=== PATIENT | male | born 1965 | race Caucasian/White ===

== ENCOUNTER 2025-03-25 07:38 | Outpatient (CLI) | payer BC, SELFPAY ==
--- NOTE | 2025-03-25 07:54 | MR_ITS ---
WS: [id number] MRI LUMBAR SPINE NONCONTRAST HISTORY: CHRONIC BILATERAL LOW BACK PAIN W/BILAT SCIATICA COMPARISON: None available. TECHNIQUE: Sagittal and axial multisequence imaging is submitted. L5 anterolisthesis by 4 mm. Disc bases are slightly narrowed and desiccated. Benign hemangioma at L3. Mild anterior wedging of T12. No acute fracture. Conus terminates normally at L1-2 disc level. L1-L2: Mild annular disc bulging. Broad-based disc protrusion LEFT foramen resulting in mild to moderate LEFT foraminal stenosis. Bilateral facet joint arthritis. Mild RIGHT foraminal stenosis also predominantly due to facet disease. L2-L3: Mild annular disc bulging with facet and ligamentum flavum hypertrophy. Very mild central, subarticular recess and foraminal stenosis. L3-L4: Diffuse annular disc bulging and osteophytic ridging with moderate facet arthritis. Central disc osteophytes contact the ventral thecal sac. Disc is extending superiorly posterior to the L3 vertebral body. Severe central, bilateral subarticular recess and foraminal stenosis. There is contact on the L3 and L4 nerve roots. L4-L5: Mild annular disc bulging with ligamentum flavum and facet arthritis. Mild central, subarticular recess and moderate foraminal stenosis. There is contact on the exiting L4 nerve roots. L5-S1: Diffuse annular disc bulging. There is unroofing of the disc. Bilateral facet joint arthritis. Moderate bilateral foraminal stenosis with contact on the exiting L5 nerve roots. Paravertebral soft tissues are negative. MR/MR lumbar spine wo con* [id number] IMPRESSION: 1. No acute lumbar fractures. 2. Severe central, bilateral subarticular recess and foraminal stenosis at L3- 4 due to combination of disc osteophyte disease and facet arthritis. There is c ontact on the L3 and L4 nerve roots. 3. Moderate bilateral foraminal stenosis at L4-5 with mild central and subarti cular recess stenosis. Disc contacts the exiting L4 nerve roots. 4. Moderate bilateral foraminal stenosis at L5-S1 with contact on the exiting L5 nerve roots. 5. Mild central, subarticular recess and foraminal stenosis at L2-3. 6. LEFT foraminal broad-based disc protrusion at L1-2 resulting in mild to mod erate LEFT foraminal stenosis. Mild RIGHT foraminal stenosis.
--- NOTE | 2025-03-25 07:54 | MR_ITS ---
WS: [id number] MRI CERVICAL SPINE NONCONTRAST HISTORY: CERVICAL RADICULOPATHY COMPARISON: None available. Technique: Multiplanar, multisequence noncontrast imaging of the cervical spine. Straightening of slight reversal of the normal cervical lordosis. Reversal centered at C4-5. Multifocal areas of abnormal signal in the cervical cord extending into the upper thoracic cord. Signal abnormality begins at the C3-4 disc level and extends into the upper thoracic spine to the T1-2 disc level. The longest increased T2 signal abnormality measures 2.0 cm at length and is centered at C4- 5. No significant expansion of the cord. Lesions are scattered throughout the cord are not within a specific distribution. Craniocervical junction, C1 and C2 relationship, odontoid process and soft tissues are normal. C2-C3: Disc bulging and facet arthritis. Mild stenosis. C3-C4: Diffuse annular disc bulging with osteophytic ridging and facet arthritis. Mild central and foraminal stenosis. C4-C5: Diffuse osteophytic ridging with disc bulging. Asymmetric disc osteophyte complex extends to the LEFT. Deformity and compression and posterior displacement of the cervical cord. Moderate to severe central and LEFT foraminal stenosis. Mild RIGHT foraminal stenosis and facet arthritis. C5-C6: Diffuse osteophytic ridging with a large central disc osteophyte. Severe central stenosis with deformity of the cord. Moderate to severe foraminal stenosis and facet arthritis. C6-C7: Diffuse disc bulging with a central disc protrusion. Bilateral facet joint arthropathy. Moderate to severe central and bilateral foraminal stenosis. C7-T1: Mild osteophytic ridging and disc bulging. Very mild central and bilateral foraminal stenosis. Paraspinal soft tissue are normal. MR/MR cervical spin wo con* [id number] IMPRESSION: 1. Multifocal areas of increased T2 and FLAIR signal in the cervical cord. Int ramedullary cord lesions extend from C3-4 disc level to the T1-2 disc level. La rgest single lesion measures 2.0 cm in length. Differential to consider is demy elinating disease and areas of myelomalacia. Recommend follow-up MRI cervical s pine with contrast. Consider additional imaging of the brain with and without c ontrast. MRI thoracic spine with and without contrast should also be considered to evaluate for additional lesions. 2. Multifocal level areas of significant stenosis. Stenosis due to combination of disc, osteophyte and facet disease. 3. Severe central stenosis at C5-6 with moderate to severe foraminal stenosis. 4. Moderate to severe central and LEFT foraminal stenosis and mild RIGHT anibal inal stenosis at C4-5. 5. Moderate to severe central and bilateral foraminal stenosis at C6-7. 6. Mild central foraminal stenosis at C3-4 and C7-T1.
== END 2025-03-25 07:39 | disposition home or self-care (01) ==
PROVIDERS: PCP Nurse Practitioner Family; Visit Provider Nurse Practitioner Family
DX: M50.11 Cervical disc disorder with radiculopathy, high cervical region (principal); M48.061 Spinal stenosis, lumbar region without neurogenic claudication; M50.123 Cervical disc disorder at C6-C7 level with radiculopathy; M50.13 Cervical disc disorder with radiculopathy, cervicothoracic region; M47.22 Other spondylosis with radiculopathy, cervical region; M47.23 Other spondylosis with radiculopathy, cervicothoracic region; M48.02 Spinal stenosis, cervical region; M48.03 Spinal stenosis, cervicothoracic region; M51.362 Other intervertebral disc degeneration, lumbar region with discogenic back pain and lower extremity pain; M51.372 Other intervertebral disc degeneration, lumbosacral region with discogenic back pain and lower extremity pain; M48.07 Spinal stenosis, lumbosacral region; M47.816 Spondylosis without myelopathy or radiculopathy, lumbar region; M47.817 Spondylosis without myelopathy or radiculopathy, lumbosacral region
CPT/HCPCS: 72141; 72148